=== PATIENT | female | born 2000 | race Caucasian/White ===

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

== ENCOUNTER 2022-09-23 06:02 | Emergency (ER) | payer OTHER ==
[2022-09-23 06:14] VITALS: BP 134/86; PULSE 75; RESP 18; TEMP 98.2; BMI 35.7
== END 2022-09-23 11:23 | disposition home or self-care (01) ==
LOC: JER 06:02
DX: R07.0 Pain in throat (principal); R05.9 Cough, unspecified; R06.7 Sneezing; J02.9 Acute pharyngitis, unspecified; J06.9 Acute upper respiratory infection, unspecified; H93.8X9 Other specified disorders of ear, unspecified ear
CPT/HCPCS: 87651; 99283-25

== ENCOUNTER 2023-06-02 07:39 | Emergency (ER) | payer OTHER ==
[2023-06-02 07:57] VITALS: BP 112/74; PULSE 105; RESP 18; BMI 35.2
[2023-06-02] MEDS ORDERED: ACETAMINOPHEN 500 MG TABLET (FP) ONE (08:19)
[2023-06-02] MEDS: ACETAMINOPHEN 500 MG TABLET (FP) PO ONE (08:20)
[2023-06-02 09:26] VITALS: TEMP 99.1
== END 2023-06-02 09:30 | disposition home or self-care (01) ==
LOC: JERFT 07:39 → JER 07:39 → JERFT 09:30
DX: R50.9 Fever, unspecified (principal); Z20.822 Contact with and (suspected) exposure to COVID-19
CPT/HCPCS: 0241U-QW; 99283-25

== ENCOUNTER 2023-07-16 00:01 | Emergency (ER) | payer OTHER ==
[2023-07-16 00:17] VITALS: BP 116/72; PULSE 84; RESP 18; TEMP 98.4; BMI 34.3
== END 2023-07-16 04:10 | disposition home or self-care (01) ==
LOC: JER 00:01
DX: H66.91 Otitis media, unspecified, right ear (principal); H92.01 Otalgia, right ear
CPT/HCPCS: 99283-25